=== PATIENT | male | born 1990 | race Caucasian/White ===

== ENCOUNTER 2023-08-22 17:35 | Emergency (ER) | payer OTHER ==
[2023-08-22 18:22] LABS: Urine Bacteria <20 /HPF (<20); Urine Mucus Slight /HPF (None Seen); Urine RBC <5 /HPF (None Seen)
--- NOTE | 2023-08-22 20:46 | EDPHYS ---
Physician Documentation [facility] Name: Scott Arevalo Age: 32 yrs Sex: Male : 1990 Arrival Date: 08/22/2023 Time: 17:35 Bed 9 Private MD: ED Physician Jeremiah Chaidez HPI: 08/22 17:55 This 32 yrs old Male presents to ER via Ambulatory with complaints of Back Pain. cp 17:55 The patient presents with pain that is chronic, with no known mechanism of injury. The cp symptoms are located in the low back. Onset: The symptoms/episode began/occurred for months. The pain radiates to the right leg. 17:55 Associated signs and symptoms: Pertinent positives: weakness, Pertinent negatives: cp abdominal pain, constipation, fever, hematuria, incontinence. The problem was sustained from unknown cause. Severity of symptoms: in the emergency department the symptoms are unchanged, despite home interventions. Patient reports he has seen a physician and had xrays of low back, MRI of low back that did not have significant findings. Patient reports he is scheduled for "nerve" testing. Historical: - Allergies: 17:46 No Known Allergies; aa5 - PMHx: 17:46 None; aa5 - PSHx: 17:46 intestinal as a child; aa5 - Immunization history:: Adult Immunizations unknown. - Social history:: Smoking status: Patient denies any tobacco usage or history of. ROS: 18:00 Back: Positive for pain at rest, pain with movement, cp 18:00 Eyes: Negative for injury, pain, redness, and discharge, cp 18:00 Constitutional: Negative for body aches, chills, fever, poor PO intake, 18:00 Neck: Negative for pain with movement, pain at rest, stiffness, 18:00 Respiratory: Negative for cough, shortness of breath, wheezing, 18:00 Abdomen/GI: Negative for abdominal pain, vomiting, diarrhea, constipation, bowel incontinence, 18:00 : Negative for urinary symptoms, difficulty urinating, bladder incontinence, cp testicular pain 18:00 Neuro: Negative for altered mental status, headache, persistent numbness and/or persistent weakness, 18:00 All other systems are negative, cp Exam: 18:05 Constitutional: The patient appears in no acute distress, alert, awake, non-toxic, well cp developed, well nourished, 18:05 Head/Face: Normocephalic, atraumatic. cp 18:05 Eyes: Periorbital structures: appear normal, Conjunctiva: normal, no exudate, no cp injection, Lids and lashes: appear normal, bilaterally, 18:05 ENT: External ear(s): are unremarkable, Nose: is normal, Mouth: Lips: moist, Oral mucosa: pink and intact, moist, Posterior pharynx: Airway: no evidence of obstruction, patent, 18:05 Neck: ROM/movement: is normal, is supple, without pain, no range of motions cp limitations, 18:05 Chest/axilla: Inspection: normal, 18:05 Cardiovascular: Rate: normal, Rhythm: regular, 18:05 Respiratory: the patient does not display signs of respiratory distress, Respirations: normal, no retractions, labored breathing, is not present, Breath sounds: are clear throughout, no decreased breath sounds, no stridor, no wheezing, 18:05 Abdomen/GI: Inspection: abdomen appears normal, Palpation: abdomen is soft and non-tender, in all quadrants, 18:05 Back: pain, that is moderate, of the lumbar area, ROM is normal, 18:05 Neuro: Motor: moves all fours, strength is normal, Sensation: no obvious gross deficits, Gait: is steady, at a normal pace, without difficulty, Vital Signs: 17:46 BP 144 / 85; Pulse 76; Resp 16 S; Temp 97.8(TE); Pulse Ox 99% on R/A; Weight 72.57 kg aa5 (R); Height 5 ft. 5 in. (R); 17:46 Body Mass Index 26.63 (72.57 kg, 165.1 cm) aa5 MDM: 17:47 Patient medically screened. cp 18:00 Differential diagnosis: chronic back pain, Pyelonephritis ruptured disc, cp Ureterolithiasis spinal stenosis, cauda equina. 08/22 17:55 Order name: Urine Microscopic Only; Complete Time: 18:44 cp 08/22 18:44 Interpretation: Reviewed. cp Administered Medications: No medications were administered Disposition Summary: 08/22/23 20:46 Eloped Notes: Disposition: after being seen by provider cm10 Reason: unknown cm10 Signatures: Dispatcher [employer] Rachel Abraham RN RN aa5 Page, Jeremiah, Keshia Olson cp, RN RN cm10
--- NOTE | 2023-08-22 20:46 | ER ---
Nurse's Notes [facility] Name: Scott Arevalo Age: 32 yrs Sex: Male : 1990 Arrival Date: 08/22/2023 Time: 17:35 Bed 9 Private MD: Diagnosis: Presentation: 08/22 17:46 Chief complaint: Patient states: lower back pain radiating down right leg "for months". aa5 Coronavirus screen: At this time, the client does not indicate any symptoms associated with coronavirus-19. Ebola Screen: Patient denies travel to an Ebola-affected area in the 21 days before illness onset. Initial Sepsis Screen: Does the patient meet any 2 criteria? No. Patient's initial sepsis screen is negative. Does the patient have a suspected source of infection? No. Patient's initial sepsis screen is negative. Risk Assessment: Do you want to hurt yourself or someone else? Patient reports no desire to harm self or others. Onset of symptoms was July 2023. 17:46 Method Of Arrival: Ambulatory aa5 17:46 Acuity: HARJINDER 4 aa5 Historical: - Allergies: 17:46 No Known Allergies; aa5 - PMHx: 17:46 None; aa5 - PSHx: 17:46 intestinal as a child; aa5 - Immunization history:: Adult Immunizations unknown. - Social history:: Smoking status: Patient denies any tobacco usage or history of. Vital Signs: 17:46 BP 144 / 85; Pulse 76; Resp 16 S; Temp 97.8(TE); Pulse Ox 99% on R/A; Weight 72.57 kg aa5 (R); Height 5 ft. 5 in. (R); 17:46 Body Mass Index 26.63 (72.57 kg, 165.1 cm) aa5 ED Course: 17:38 Patient arrived in ED. mg5 17:46 Arm band placed on. aa5 17:47 Jeremiah Cazares PA is PHCP. cp 17:47 Jeremiah Chaidez MD is Attending Physician. cp 17:47 Triage completed. aa5 20:27 Patient's name was called from ER lobby. No response. cm10 20:45 Patient's name was called from ER lobby. No response. cm10 Administered Medications: No medications were administered Outcome: 20:46 Patient left the ED. cm10 Signatures: Potts, Rachel, RN RN aa5 Jeremiah Cazares PA PA cp Martinez, Clarissa, RN RN cm10 Madeleine Magallon mg5
[2023-08-22 21:14] VITALS: BP 144/85; TEMP 97.8; O2SAT 99
== END 2023-08-22 20:46 | disposition left against medical advice (07) ==
LOC: ER 17:35
DX: M54.50 Low back pain, unspecified (principal)
CPT/HCPCS: 81015; 99281